=== PATIENT | male | born 1945 ===

== ENCOUNTER 2025-02-15 10:52 | Emergency (ER) | payer MEDICARE, BC ==
[2025-02-15] MEDS ORDERED: Sodium Chloride 0.9% 10 ML Syringe FLUSH PRN (11:03)
[2025-02-15 11:18] LABS: BASOPHILS ABSOLUTE AUTO 0.03 K/uL (0.00-0.20); BASOPHILS PERCENT AUTO 0.5 % (0.0-2.0); EOSINOPHILS ABSOLUTE AUTO 0.07 K/uL (0.00-0.50); EOSINOPHILS PERCENT AUTO 1.1 % (0.0-5.0); HEMATOCRIT 40.7 % (39.0-49.0); HEMOGLOBIN 13.6 g/dL (13.1-16.8); IMMATURE GRAN ABSOLUTE AUTO 0.04 10^3/uL (0.00-0.04); IMMATURE GRAN PERCENT AUTO 0.6 % (0.0-0.4); LYMPHOCYTES ABSOLUTE AUTO 0.45 K/uL (0.50-3.50); LYMPHOCYTES PERCENT AUTO 7.3 % (10.0-50.0); MEAN CORPUSCULAR HGB CONC 33.4 g/dL (31.7-36.0); MEAN CORPUSCULAR VOLUME 101.8 fL (84.0-98.0); MONOCYTES PERCENT AUTO 4.9 % (2.0-14.0); NEUTROPHILS ABSOLUTE AUTO 5.27 K/uL (1.40-7.00); NEUTROPHILS PERCENT AUTO 85.6 % (45.0-80.0); PLATELET COUNT,PLT 182 K/uL (150-350); RED CELL DISTRIBUTION WIDTH 12.4 % (11.2-14.1); WHITE BLOOD CELL COUNT,WBC 6.2 K/uL (4.0-10.2)
[2025-02-15 11:47] LABS: ALBUMIN 3.8 g/dL (3.4-5.0); ANION GAP 6.3 meq/L (7-15); BILIRUBIN TOTAL 0.7 mg/dL (0.2-1.0); CALCIUM 8.9 mg/dL (8.5-10.1); CARBON DIOXIDE,CO2 27.7 mmol/L (21.0-32.0); CREATININE 1.35 mg/dL (0.51-1.17); EST CRCL DRUG DOSING (CG) 42.84 mL/min; MAGNESIUM 1.9 mg/dL (1.8-2.4); POTASSIUM,K 4.8 mmol/L (3.5-5.1); PROTEIN TOTAL,TP 6.4 g/dL (6.4-8.2)
[2025-02-15] MEDS: Sodium Chloride 0.9% 1,000 ML IV ONE (12:09)
== END 2025-02-15 13:28 | disposition home or self-care (01) ==
LOC: LL.ED 10:52
DX: T67.9XXA Effect of heat and light, unspecified, initial encounter (principal); E86.0 Dehydration; I48.91 Unspecified atrial fibrillation; E11.9 Type 2 diabetes mellitus without complications; Z79.899 Other long term (current) drug therapy; Z88.8 Allergy status to other drugs, medicaments and biological substances; Z91.09 Other allergy status, other than to drugs and biological substances
CPT/HCPCS: 36415; 80053; 83605; 83735; 83880; 84484; 85025; 85379; 93005; 96360; 96361; 99284-25; J7030